=== PATIENT | female | born 1965 | race Caucasian/White ===

== ENCOUNTER → 2019-04-04 | Day surgery (SDC) | payer OTHER ==
[~2019-04-04] MED LIST: BACOFLEN PO; CELEBREX200MG PO; CYMBALTA20 MG PO; MONUROL3 GM PO; NORFLEX PO; PEPCID20 MG PO; TORADOL60 MG PO; VISTARIL25 MG PO; VISTARIL50 MG PO
== END | disposition home or self-care (01) ==
LOC: CIR.AMB 07:10 → EDSTATUS 11:15 → CIR.AMB 11:15 → SURH 11:15
DX: N84.0 Polyp of corpus uteri (principal)